=== PATIENT | male | born 1960 | race Caucasian/White ===

== ENCOUNTER 2018-11-05 13:37 | Observation (INO) | payer OTHER ==
[~2018-11-05] VITALS: Ht 180.3 cm; Wt 93.9 kg
[2018-11-05 13:45] VITALS: BP 121/83
[2018-11-05] MEDS ORDERED: DIFLUCAN200 MG PO (13:48)
[2018-11-05] MEDS ORDERED: FLOMAX0.4 MG PO (13:48)
[2018-11-05] MEDS ORDERED: NITROFURANTOIN100 MG PO (13:48)
[2018-11-05 13:54] LABS: URINE BILIRUBIN NEGATIVE (Negative); URINE BLOOD 1+ (Negative); URINE CLARITY CLEAR; URINE COLOR YELLOW; URINE GLUCOSE-RANDOM NEGATIVE (Negative); URINE KETONES NEGATIVE (Negative); URINE NITRITE-REFLEX NEGATIVE (Negative); URINE PROTEIN TRACE (Negative); URINE SPECIFIC GRAVITY 1.015 (1.005-1.030); URINE UROBILINOGEN 0.2 E.U./dl (0.2-1.0)
[2018-11-05 13:55] LABS: URINE LEUKOCYTES-REFLEX 3+ (Negative)
[2018-11-05 14:07] LABS: CASTS None Seen /LPF (None Seen); CRYSTALS None Seen /LPF (None Seen); MUCUS None Seen strn/LPF (None Seen); SQUAMOUS 0-3 Few /LPF (0-3); URINE RBC 3-10 Few /HPF (0-2); URINE WBC-REFLEX >25 Many /HPF (0-5)
[2018-11-05 14:08] LABS: ABSOLUTE BASOPHILS 0.1 thou/uL (0.0-0.2); ABSOLUTE EOSINOPHILS 0.3 thou/uL (0.0-0.7); ABSOLUTE LYMPHOCYTES 2.2 thou/uL (0.8-5.3); ABSOLUTE MONOCYTES 0.6 thou/uL (0.0-1.2); ABSOLUTE NEUTROPHILS 5.8 thou/uL (1.6-8.1); EOSINOPHILS 3.7 %; HEMATOCRIT 40.6 % (42.0-52.0); HEMOGLOBIN 13.5 gm/dL (14.0-18.0); LYMPHOCYTES 24.3 %; MCH 27.8 pg (26.0-34.0); MCHC 33.3 g/dL (28.0-37.0); MCV 83.6 fL (80.0-100.0); MONOCYTES 6.1 %; MPV 7.4 fl. (7.2-11.1); NUCLEATED RBCS 0 /100WBC; PLATELET COUNT* 338 thou/uL (150-400); POLYS 64.9 %; RBC 4.86 mil/uL (4.50-6.00); RDW-CV 13.3 % (10.5-14.5)
[2018-11-05 14:16] LABS: CALCIUM 9.2 mg/dL (8.5-10.1); CREATININE 0.8 mg/dL (0.6-1.3); POTASSIUM 4.3 mmol/L (3.5-5.1)
[2018-11-05 14:26] LABS: TOTAL BILIRUBIN 0.2 mg/dL (<0.1-1.0); TOTAL PROTEIN 8.3 g/dL (6.4-8.2)
[2018-11-05 17:58] VITALS: BP 121/73
[2018-11-05 18:05] VITALS: BP 118/70
--- NOTE | 2018-11-05 18:47 | NUR ---
PATIENT ADMITTED TO ROOM 107 FROM ER. NO COMPLAINTS OF PAIN. PATIENT VOIDING 125MLS OF CLEAR YELLOW URINE, NO STONES NOTED. STONE WAS SENT FOR URINALYSIS FROM PREVIOUS URINATION PER ORDERS. SPOKE WITH DR. BAUMAN FROM UROLOGY, ORDERS RECEIVED. NOTIFIED THAT PATIENT REFUSING [place] TO BE PLACED. WILL SEE IN AM, NPO AFTER MIDNIGHT. REG DIET. IVF TO INFUSE. UP AD HELADIO. ORIENTED TO CALL LIGHT. CALL LIGHT WITHIN REACH, WILL CONTINUE TO MONITOR.
[2018-11-05 20:00] VITALS: BP 117/69
[2018-11-06] VITALS: BP 115/71
[2018-11-06 04:00] VITALS: BP 110/66
[2018-11-06 04:04] LABS: CALCIUM 9.3 mg/dL (8.5-10.1); CREATININE 0.9 mg/dL (0.6-1.3); MAGNESIUM 2.2 mg/dL (1.8-2.4); POTASSIUM 4.2 mmol/L (3.5-5.1)
--- NOTE | 2018-11-06 06:14 | NUR ---
PT NPO AFTER MIDNIGHT FOR POSSIBLE CYSTOSCOPY TODAY. PT HAS PASSED ONE VERY SMALL STONE LAST NIGHT. CONTINUE TO STRAIN URINE. PT RESTING QUIETLY IN BED. NO ACUTE CHANGES, WILL CONTINUE PLAN OF CARE.
[2018-11-06 07:05] VITALS: BP 116/68
[2018-11-06] MEDS ORDERED: CIPRO250 M1 PO (11:18)
[2018-11-06 11:19] VITALS: BP 116/68
[2018-11-06 11:38] VITALS: BP 116/68
--- NOTE | 2018-11-06 11:39 | NUR ---
ASSESSMENT COMPLETE. PT ALERT AND ORIENTED X4. UROLOGY DISCHARGE PATIENT AND SCHEDULING OUTPUT PROCEDURE. UROLOGY OFFICE WILL CALL PATIENT WITH APPT INFORMATION. PRESCRIPTIONS AND DC INSTRUCTIONS GIVEN. IV TAKEN OUT WITHOUT COMPLICATIONS. ALL BELONGINGS SENT WITH PATIENT. SEE ASSESSMENT AND VITALS FOR OTHER DETAILS.
== END 2018-11-06 11:35 | disposition home or self-care (01) ==
LOC: M.ERS 13:37 → M.TBA-ER 17:08 → M.ORTHSURG 17:08
PROVIDERS: Physician Assistant; ADMIT Internal Medicine
DX: N13.30 Unspecified hydronephrosis (principal); N32.3 Diverticulum of bladder; N40.0 Benign prostatic hyperplasia without lower urinary tract symptoms; N43.3 Hydrocele, unspecified; N21.0 Calculus in bladder; Z79.899 Other long term (current) drug therapy